=== PATIENT | male | born 1960 | race Caucasian/White ===

== ENCOUNTER 2018-09-22 05:28 | Inpatient (IN) | payer OTHER, BC ==
[2018-09-22] MEDS ORDERED: CEFAZOLIN 2 GM/50 ML (PMX) 50 ML IVPB (06:00)
[2018-09-22] MEDS: LACTATED RINGER'S 1,000 ML IV (06:38)
[2018-09-22] MEDS ORDERED: CEPASTAT LOZENGE MT (07:00)
[2018-09-22] MEDS ORDERED: NALOXONE (0.4 MG/ML) INJ IV (07:00)
[2018-09-22] MEDS ORDERED: DIPHENHYDRAMINE 25 MG CAP PO (07:00)
[2018-09-22] MEDS ORDERED: ACETAMINOPHEN 325 MG TAB PO (07:00)
[2018-09-22] MEDS ORDERED: CEFAZOLIN 1 GM INJ (07:00)
[2018-09-22] MEDS ORDERED: DIPHENHYDRAMINE 50 MG INJ IV (07:00)
[2018-09-22] MEDS ORDERED: DESFLURANE 15 MIN (07:00)
[2018-09-22] MEDS ORDERED: ROCURONIUM 50 MG INJ (07:14)
[2018-09-22] MEDS ORDERED: PROPOFOL 20 ML (07:14)
[2018-09-22] MEDS ORDERED: PROPOFOL 100 ML ×2 (07:14→09:31)
[2018-09-22] MEDS ORDERED: HYDROmorphONE 2 MG/ML SYG ×3 (07:15→11:52)
[2018-09-22] MEDS ORDERED: DEXAMETHASONE 4 MG/ML 5 ML INJ (07:15)
[2018-09-22] MEDS ORDERED: FENTAnyl 50 MCG/ML VIAL (07:15)
[2018-09-22] MEDS ORDERED: ONDANSETRON 4 MG INJ (07:15)
[2018-09-22] MEDS ORDERED: MIDAZOLAM 1 MG/ML 2 ML INJ (07:16)
[2018-09-22] MEDS ORDERED: PHENYLephrine 20MG IN 250 ML 250 ML IV (07:30)
[2018-09-22] MEDS ORDERED: LIDOCAINE 2% 20 ML UROJET SYRINGE ×2 (08:08→11:54)
[2018-09-22] MEDS: HEPARIN 1000 UNITS/ML 10 ML INJ (08:50)
[2018-09-22] MEDS: CEFAZOLIN 1 GM INJ (08:50)
[2018-09-22] MEDS ORDERED: LABETALOL HCL 20MG INJ IV (09:30)
[2018-09-22] MEDS ORDERED: hydrALAzine 20 MG INJ IV (09:30)
[2018-09-22] MEDS ORDERED: HYDROmorphONE 1 MG/5 ML IV SYRINGE IV (09:30)
[2018-09-22] MEDS ORDERED: ALBUMIN HUMAN 5% 250 ML IV (09:30)
[2018-09-22] MEDS ORDERED: MIDAZOLAM 1 MG/ML 2 ML INJ IV (09:30)
[2018-09-22] MEDS ORDERED: EPHEDrine 25 MG/5 ML SYG IV (09:30)
[2018-09-22] MEDS: BUPIVACAINE 0.5%/EPI (SDV) 30 ML INJ (09:33)
[2018-09-22] MEDS: GELATIN SIZE 100 SPONGE (09:34)
[2018-09-22] MEDS: THROMBIN 5000 UNIT (RECOTHROM) VIAL (09:34)
[2018-09-22] MEDS: HEMOSTATIC MATRIX SYG ZFS ×2 (09:35→11:00)
[2018-09-22] MEDS ORDERED: SUGAMMADEX SODIUM 200 MG/2 ML VIAL IV (10:40)
[2018-09-22] MEDS: ONDANSETRON 4 MG INJ IV ×2 (12:32→21:25)
[2018-09-22] MEDS: HYDROmorphONE 0.2 MG/ML PCA IV (12:32)
[2018-09-22] MEDS: HYDROmorphONE 1 MG/5 ML IV SYRINGE IV (12:32)
[2018-09-22] MEDS: DOCUSATE SODIUM 100 MG CAP PO ×2 (13:38→21:25)
[2018-09-22] MEDS: CEFAZOLIN 1 GM/50 ML (PMX) 50 ML IVPB ×2 (13:38→17:48)
[2018-09-22] MEDS: D5W-0.45 NACL + KCL 20 MEQ 1,000 ML IV ×2 (14:43→16:31)
[2018-09-22] MEDS: SOD CHLORIDE 0.9% 1,000 ML IV (17:48)
[2018-09-22] MEDS: PANTOPRAZOLE (EC) 40 MG TAB PO (18:23)
[2018-09-23] MEDS: CEFAZOLIN 1 GM/50 ML (PMX) 50 ML IVPB (01:10)
[2018-09-23] MEDS: D5W-0.45 NACL + KCL 20 MEQ 1,000 ML IV ×3 (03:03→22:54)
[2018-09-23] MEDS: HYDROmorphONE 0.2 MG/ML PCA IV (04:38)
[2018-09-23 04:54] LABS: ADD MAN DIFF? NO
[2018-09-23 04:58] LABS: WHITE BLOOD COUNT 14.1 10^3/ul (4.8-10.8)
[2018-09-23 04:58] LABS: ABNORMAL IP MESSAGE 1; BASOPHILS % 0.1 % (0.0-2.0); HEMATOCRIT 38.5 % (42.0-52.0); HEMOGLOBIN 12.8 g/dl (14.0-18.0); LYMPHOCYTES % 7.1 % (15.0-51.0); MEAN CORPUSCULAR HEMOGLOBIN 30.5 pg (29.0-33.0); MEAN CORPUSCULAR HGB CONC 33.2 g/dl (32.0-37.0); MEAN CORPUSCULAR VOLUME 91.9 fl (82.0-101.0); MEAN PLATELET VOLUME 11.1 fl (7.4-10.4); MONOCYTE # 1.6 10^3/ul (0.3-0.9); MONOCYTES % 11.3 % (0.0-11.0); NEUTROPHIL # 11.5 10^3/ul (1.6-7.5); NEUTROPHILS % 81.1 % (39.0-77.0); PLATELET COUNT 167 10^3/UL (140-415); POSITIVE DIFF @See below; RED BLOOD COUNT 4.19 10^6/ul (4.70-6.10); RED CELL DISTRIBUTION WIDTH 12.1 % (11.5-14.5)
[2018-09-23] MEDS: PANTOPRAZOLE (EC) 40 MG TAB PO ×2 (05:20→21:03)
[2018-09-23 05:29] LABS: ANION GAP 8 (5-13); BLOOD UREA NITROGEN 14 mg/dl (7-20); CALCIUM 8.7 mg/dl (8.4-10.2); CARBON DIOXIDE 27 mmol/L (21-31); CHLORIDE 105 mmol/L (97-110); CREATININE 1.09 mg/dl (0.61-1.24); Estimated GFR > 60 mL/min (>60); GLUCOSE 141 mg/dl (70-220); POTASSIUM 4.3 mmol/L (3.5-5.1); SODIUM 140 mmol/L (135-144)
[2018-09-23] MEDS: DOCUSATE SODIUM 100 MG CAP PO ×2 (09:34→21:03)
[2018-09-23 13:45] LABS: FREE T4 (FREE THYROXINE) 0.98 ng/dl (0.64-1.79)
[2018-09-23] MEDS: CYCLOBENZAPRINE 10 MG TAB PO (16:08)
[2018-09-23] MEDS: AL HYDROX/MG HYDROX/SIMETH 30 ML CUP PO (16:09)
[2018-09-23] MEDS: METHYLNALTREXONE 12 MG/0.6 ML VIAL SC (21:03)
[2018-09-24] MEDS: CYCLOBENZAPRINE 10 MG TAB PO ×2 (01:55→22:42)
[2018-09-24] MEDS: HYDROmorphONE 0.2 MG/ML PCA IV (02:10)
[2018-09-24] MEDS ORDERED: HYDROmorphONE 0.2 MG/ML PCA IV (02:30)
[2018-09-24] MEDS: D5W-0.45 NACL + KCL 20 MEQ 1,000 ML IV (05:04)
[2018-09-24 05:06] LABS: ADD MAN DIFF? NO
[2018-09-24 05:14] LABS: BASOPHILS % 0.2 % (0.0-2.0); EOSINOPHILS % 0.4 % (0.0-7.0); HEMATOCRIT 34.3 % (42.0-52.0); HEMOGLOBIN 11.3 g/dl (14.0-18.0); LYMPHOCYTES # 2.1 10^3/ul (0.8-2.9); LYMPHOCYTES % 18.7 % (15.0-51.0); MEAN CORPUSCULAR HEMOGLOBIN 30.5 pg (29.0-33.0); MEAN CORPUSCULAR HGB CONC 32.9 g/dl (32.0-37.0); MEAN CORPUSCULAR VOLUME 92.5 fl (82.0-101.0); MONOCYTE # 1.3 10^3/ul (0.3-0.9); MONOCYTES % 11.1 % (0.0-11.0); NEUTROPHIL # 7.9 10^3/ul (1.6-7.5); PLATELET COUNT 133 10^3/UL (140-415); RED BLOOD COUNT 3.71 10^6/ul (4.70-6.10); RED CELL DISTRIBUTION WIDTH 12.1 % (11.5-14.5)
[2018-09-24 05:14] LABS: WHITE BLOOD COUNT 11.4 10^3/ul (4.8-10.8)
[2018-09-24 05:38] LABS: ANION GAP 4 (5-13); BLOOD UREA NITROGEN 13 mg/dl (7-20); CALCIUM 8.4 mg/dl (8.4-10.2); CARBON DIOXIDE 29 mmol/L (21-31); CHLORIDE 103 mmol/L (97-110); CREATININE 0.94 mg/dl (0.61-1.24); Estimated GFR > 60 mL/min (>60); GLUCOSE 109 mg/dl (70-220); POTASSIUM 3.8 mmol/L (3.5-5.1); SODIUM 136 mmol/L (135-144)
[2018-09-24] MEDS: PANTOPRAZOLE (EC) 40 MG TAB PO ×2 (06:35→18:06)
[2018-09-24] MEDS: POTASSIUM CHLORIDE (SR) 20 MEQ TAB PO (09:05)
[2018-09-24] MEDS: DOCUSATE SODIUM 100 MG CAP PO ×2 (09:06→20:20)
[2018-09-24] MEDS: HYDROCODONE/APAP (10/325) TAB PO ×3 (09:06→20:20)
[2018-09-24] MEDS: FUROSEMIDE 20 MG TAB PO (09:06)
[2018-09-24] MEDS ORDERED: HYDROmorphONE 0.5 MG/0.5 ML SYG IV (13:00)
[2018-09-25] MEDS: HYDROCODONE/APAP (10/325) TAB PO ×4 (00:35→19:48)
[2018-09-25 05:28] LABS: ADD MAN DIFF? NO
[2018-09-25 05:32] LABS: BASOPHILS % 0.4 % (0.0-2.0); EOSINOPHILS # 0.2 10^3/ul (0.0-0.5); EOSINOPHILS % 1.6 % (0.0-7.0); HEMATOCRIT 34.8 % (42.0-52.0); HEMOGLOBIN 11.2 g/dl (14.0-18.0); LYMPHOCYTES # 2.1 10^3/ul (0.8-2.9); LYMPHOCYTES % 22.8 % (15.0-51.0); MEAN CORPUSCULAR HEMOGLOBIN 29.6 pg (29.0-33.0); MEAN CORPUSCULAR HGB CONC 32.2 g/dl (32.0-37.0); MEAN CORPUSCULAR VOLUME 91.8 fl (82.0-101.0); MEAN PLATELET VOLUME 11.2 fl (7.4-10.4); MONOCYTE # 0.9 10^3/ul (0.3-0.9); MONOCYTES % 9.7 % (0.0-11.0); NEUTROPHILS % 65.3 % (39.0-77.0); PLATELET COUNT 135 10^3/UL (140-415); RED BLOOD COUNT 3.79 10^6/ul (4.70-6.10)
[2018-09-25 05:32] LABS: WHITE BLOOD COUNT 9.2 10^3/ul (4.8-10.8)
[2018-09-25 06:08] LABS: ANION GAP 5 (5-13); BLOOD UREA NITROGEN 14 mg/dl (7-20); CALCIUM 8.3 mg/dl (8.4-10.2); CARBON DIOXIDE 32 mmol/L (21-31); CHLORIDE 99 mmol/L (97-110); CREATININE 0.94 mg/dl (0.61-1.24); Estimated GFR > 60 mL/min (>60); GLUCOSE 106 mg/dl (70-220); POTASSIUM 3.8 mmol/L (3.5-5.1); SODIUM 136 mmol/L (135-144)
[2018-09-25] MEDS: PANTOPRAZOLE (EC) 40 MG TAB PO ×2 (06:36→17:44)
[2018-09-25] MEDS: DOCUSATE SODIUM 100 MG CAP PO ×2 (09:33→21:00)
[2018-09-25] MEDS: AL HYDROX/MG HYDROX/SIMETH 30 ML CUP PO (09:33)
[2018-09-25] MEDS: METOPROLOL 25 MG TAB PO ×2 (09:33→20:47)
[2018-09-25] MEDS: CYCLOBENZAPRINE 10 MG TAB PO (09:38)
[2018-09-25 09:48] LABS: PROCALCITONIN 0.12 ng/mL (0.00-0.10)
[2018-09-25] MEDS: BISACODYL 10 MG SUPP PR (14:35)
[2018-09-25] MEDS: METHYLNALTREXONE 12 MG/0.6 ML VIAL SC (18:30)
== END 2018-09-25 21:10 | DRG 455 ==
LOC: REC 05:28 → MS1 13:59
PROVIDERS: Specialist
PROC: 0SG30A0 Fusion of Lumbosacral Joint with Interbody Fusion Device, Anterior Approach, Anterior Column, Open Approach (ICD-10-PCS; principal; 2018-09-22 07:00)
PROC: 0SG30K1 Fusion of Lumbosacral Joint with Nonautologous Tissue Substitute, Posterior Approach, Posterior Column, Open Approach (ICD-10-PCS; 2018-09-22 07:00)
PROC: 0ST40ZZ Resection of Lumbosacral Disc, Open Approach (ICD-10-PCS; 2018-09-22 07:00)
PROC: 0T7D8ZZ Dilation of Urethra, Via Natural or Artificial Opening Endoscopic (ICD-10-PCS; 2018-09-22 07:19)
PROC: 0T9B70Z Drainage of Bladder with Drainage Device, Via Natural or Artificial Opening (ICD-10-PCS; 2018-09-22 07:19)
DX: M51.17 Intervertebral disc disorders with radiculopathy, lumbosacral region (principal); K21.9 Gastro-esophageal reflux disease without esophagitis; N35.919 Unspecified urethral stricture, male, unspecified site; N32.0 Bladder-neck obstruction; I51.89 Other ill-defined heart diseases; R91.8 Other nonspecific abnormal finding of lung field; R94.6 Abnormal results of thyroid function studies; R00.0 Tachycardia, unspecified; E87.79 Other fluid overload
CPT/HCPCS: 71045; 72100; 72110; 80048; 83605; 83735; 84145; 84439; 84443; 85025; 87040-91; 87086; 88304; 93005; 93306; 93970; 97110; 97116; 97161; 97530

== ENCOUNTER 2018-09-25 21:24 | Inpatient (IN) | payer OTHER ==
[2018-09-25] MEDS ORDERED: CEPASTAT LOZENGE MT (22:00)
[2018-09-25] MEDS ORDERED: ACETAMINOPHEN 325 MG TAB PO (22:00)
[2018-09-25] MEDS ORDERED: ONDANSETRON 4 MG INJ IV (22:00)
[2018-09-25] MEDS ORDERED: BISACODYL 10 MG SUPP PR (22:00)
[2018-09-25] MEDS ORDERED: DIPHENHYDRAMINE 25 MG CAP PO (22:00)
[2018-09-25] MEDS ORDERED: NALOXONE (0.4 MG/ML) INJ IV (22:00)
[2018-09-25] MEDS: CYCLOBENZAPRINE 10 MG TAB PO (22:57)
[2018-09-26 01:44] LABS: ADD UMIC NO; UR ASCORBIC ACID NEGATIVE (NEGATIVE); UR BILIRUBIN (Dip) NEGATIVE (NEGATIVE); UR BLOOD (Dip) NEGATIVE (NEGATIVE); UR CLARITY CLEAR (CLEAR); UR COLOR STRAW (YELLOW); UR GLUCOSE (Dip) NEGATIVE (NEGATIVE); UR KETONES (Dip) NEGATIVE (NEGATIVE); UR LEUKOCYTE ESTERASE (Dip) NEGATIVE Leu/ul (NEGATIVE); UR NITRITE (Dip) NEGATIVE (NEGATIVE); UR SPECIFIC GRAVITY (Dip) 1.008 (1.003-1.030); UR TOTAL PROTEIN (Dip) NEGATIVE (NEGATIVE); UR UROBILINOGEN (Dip) NEGATIVE (NEGATIVE)
[2018-09-26] MEDS ORDERED: MAGNESIUM HYDROXIDE 30ML CUP PO (02:30)
[2018-09-26] MEDS ORDERED: LACTULOSE 30ML CUP PO (02:30)
[2018-09-26] MEDS: PANTOPRAZOLE (EC) 40 MG TAB PO ×2 (06:20→17:33)
[2018-09-26] MEDS ORDERED: PENDING SANTYL ORDER FOR WOUND CARE XX (06:30)
[2018-09-26] MEDS: DOCUSATE SODIUM 100 MG CAP PO ×2 (08:34→20:39)
[2018-09-26] MEDS: CYCLOBENZAPRINE 10 MG TAB PO ×2 (08:34→20:39)
[2018-09-26] MEDS: METOPROLOL 25 MG TAB PO (08:34)
[2018-09-26 08:35] LABS: ADD MAN DIFF? NO
[2018-09-26] MEDS: HYDROmorphONE 0.5 MG/0.5 ML SYG IV (08:35)
[2018-09-26 08:50] LABS: BASOPHILS % 0.5 % (0.0-2.0); EOSINOPHILS # 0.2 10^3/ul (0.0-0.5); EOSINOPHILS % 2.9 % (0.0-7.0); HEMATOCRIT 35.3 % (42.0-52.0); HEMOGLOBIN 11.5 g/dl (14.0-18.0); LYMPHOCYTES # 1.7 10^3/ul (0.8-2.9); LYMPHOCYTES % 21.7 % (15.0-51.0); MEAN CORPUSCULAR HEMOGLOBIN 29.8 pg (29.0-33.0); MEAN CORPUSCULAR HGB CONC 32.6 g/dl (32.0-37.0); MEAN CORPUSCULAR VOLUME 91.5 fl (82.0-101.0); MEAN PLATELET VOLUME 11.6 fl (7.4-10.4); MONOCYTE # 0.8 10^3/ul (0.3-0.9); MONOCYTES % 10.1 % (0.0-11.0); NEUTROPHILS % 64.4 % (39.0-77.0); PLATELET COUNT 165 10^3/UL (140-415); RED BLOOD COUNT 3.86 10^6/ul (4.70-6.10)
[2018-09-26 08:50] LABS: WHITE BLOOD COUNT 7.8 10^3/ul (4.8-10.8)
[2018-09-26 09:04] LABS: ALANINE AMINOTRANSFERASE 20 IU/L (13-69); ALBUMIN 3.5 g/dl (3.3-4.9); ALBUMIN/GLOBULIN RATIO 1.09; ALKALINE PHOSPHATASE 69 IU/L (42-121); ANION GAP 8 (5-13); ASPARTATE AMINO TRANSFERASE 37 IU/L (15-46); BILIRUBIN,INDIRECT 0.5 mg/dl (0-1.1); BILIRUBIN,TOTAL 0.5 mg/dl (0.2-1.3); BLOOD UREA NITROGEN 15 mg/dl (7-20); CALCIUM 8.8 mg/dl (8.4-10.2); CARBON DIOXIDE 32 mmol/L (21-31); CHLORIDE 99 mmol/L (97-110); CREATININE 0.99 mg/dl (0.61-1.24); Estimated GFR > 60 mL/min (>60); GLUCOSE 101 mg/dl (70-220); POTASSIUM 3.8 mmol/L (3.5-5.1); SODIUM 139 mmol/L (135-144); TOTAL PROTEIN 6.7 g/dl (6.1-8.1)
[2018-09-26] MEDS: HYDROCODONE/APAP (10/325) TAB PO ×2 (11:33→16:55)
[2018-09-26 12:24] LABS: HEPATITIS B SURFACE ANTIGEN NEGATIVE (NEGATIVE)
[2018-09-26 12:42] LABS: HEPATITIS C VIRAL ANTIBODY NEGATIVE (NEGATIVE)
[2018-09-26 18:53] LABS: RAPID PLASMA REAGIN NONREACTIVE (NR)
[2018-09-26] MEDS: ALFUZOSIN (SR) 10 MG TAB PO (20:39)
[2018-09-26] MEDS: SENNA TAB PO (20:39)
[2018-09-26] MEDS: METOPROLOL 50 MG TAB PO (20:40)
[2018-09-26] MEDS: AL HYDROX/MG HYDROX/SIMETH 30 ML CUP PO (23:35)
[2018-09-27] MEDS: CYCLOBENZAPRINE 10 MG TAB PO ×4 (02:36→23:20)
[2018-09-27] MEDS: PANTOPRAZOLE (EC) 40 MG TAB PO ×2 (06:33→17:41)
[2018-09-27] MEDS: METOPROLOL 50 MG TAB PO (09:58)
[2018-09-27] MEDS: DOCUSATE SODIUM 100 MG CAP PO ×2 (09:58→21:04)
[2018-09-27] MEDS: HYDROCODONE/APAP (10/325) TAB PO ×3 (09:59→23:20)
[2018-09-27] MEDS: METOPROLOL (XL) 100 MG TAB PO (21:00)
[2018-09-27] MEDS: SENNA TAB PO (21:04)
[2018-09-27] MEDS: ALFUZOSIN (SR) 10 MG TAB PO (21:09)
[2018-09-27] MEDS: METHYLNALTREXONE 12 MG/0.6 ML VIAL SC (21:10)
[2018-09-28] MEDS: PANTOPRAZOLE (EC) 40 MG TAB PO ×2 (06:29→17:36)
[2018-09-28] MEDS: DOCUSATE SODIUM 100 MG CAP PO ×2 (09:10→20:47)
[2018-09-28] MEDS: FINASTERIDE 5 MG TAB PO (09:11)
[2018-09-28] MEDS: METOPROLOL (XL) 100 MG TAB PO ×2 (09:13→20:53)
[2018-09-28] MEDS: HYDROCODONE/APAP (10/325) TAB PO ×2 (09:14→18:19)
[2018-09-28] MEDS: CYCLOBENZAPRINE 10 MG TAB PO (09:17)
[2018-09-28 11:11] LABS: ADD MAN DIFF? NO
[2018-09-28 11:15] LABS: BASOPHILS % 0.3 % (0.0-2.0); EOSINOPHILS # 0.2 10^3/ul (0.0-0.5); EOSINOPHILS % 3.3 % (0.0-7.0); HEMATOCRIT 35.5 % (42.0-52.0); HEMOGLOBIN 11.6 g/dl (14.0-18.0); LYMPHOCYTES # 1.6 10^3/ul (0.8-2.9); LYMPHOCYTES % 25.8 % (15.0-51.0); MEAN CORPUSCULAR HEMOGLOBIN 30.1 pg (29.0-33.0); MEAN CORPUSCULAR HGB CONC 32.7 g/dl (32.0-37.0); MEAN CORPUSCULAR VOLUME 92.2 fl (82.0-101.0); MEAN PLATELET VOLUME 10.8 fl (7.4-10.4); MONOCYTE # 0.7 10^3/ul (0.3-0.9); MONOCYTES % 10.9 % (0.0-11.0); NEUTROPHIL # 3.6 10^3/ul (1.6-7.5); NEUTROPHILS % 59.4 % (39.0-77.0); PLATELET COUNT 193 10^3/UL (140-415); RED BLOOD COUNT 3.85 10^6/ul (4.70-6.10); RED CELL DISTRIBUTION WIDTH 11.8 % (11.5-14.5)
[2018-09-28 11:15] LABS: WHITE BLOOD COUNT 6.1 10^3/ul (4.8-10.8)
[2018-09-28 11:39] LABS: ANION GAP 4 (5-13); BLOOD UREA NITROGEN 15 mg/dl (7-20); CALCIUM 8.7 mg/dl (8.4-10.2); CARBON DIOXIDE 31 mmol/L (21-31); CHLORIDE 102 mmol/L (97-110); CREATININE 0.96 mg/dl (0.61-1.24); Estimated GFR > 60 mL/min (>60); GLUCOSE 99 mg/dl (70-220); POTASSIUM 3.9 mmol/L (3.5-5.1); SODIUM 137 mmol/L (135-144)
[2018-09-28] MEDS: ALFUZOSIN (SR) 10 MG TAB PO (20:47)
[2018-09-28] MEDS: SENNA TAB PO (20:47)
[2018-09-28] MEDS: CIPROFLOXACIN 500 MG TAB PO (20:47)
[2018-09-29] MEDS: CIPROFLOXACIN 500 MG TAB PO ×2 (06:35→17:39)
[2018-09-29] MEDS: PANTOPRAZOLE (EC) 40 MG TAB PO ×2 (06:35→17:39)
[2018-09-29] MEDS: SIMETH/SOD BICARB/CIT AC PKT (E-Z- GAS II) PO (10:16)
[2018-09-29] MEDS: BARIUM SULFATE 135 ML (E-Z HD) PO (10:16)
[2018-09-29] MEDS: DOCUSATE SODIUM 100 MG CAP PO ×2 (10:46→21:00)
[2018-09-29] MEDS: METOPROLOL (XL) 100 MG TAB PO ×2 (10:46→21:00)
[2018-09-29] MEDS: FINASTERIDE 5 MG TAB PO (10:55)
[2018-09-29] MEDS: HYDROCODONE/APAP (10/325) TAB PO ×3 (10:56→21:57)
[2018-09-29] MEDS: ALFUZOSIN (SR) 10 MG TAB PO (21:00)
[2018-09-29] MEDS: METHYLNALTREXONE 12 MG/0.6 ML VIAL SC (21:06)
[2018-09-29] MEDS: SENNA TAB PO (21:07)
[2018-09-29] MEDS: CYCLOBENZAPRINE 10 MG TAB PO (21:09)
[2018-09-30] MEDS: CIPROFLOXACIN 500 MG TAB PO ×2 (07:04→17:11)
[2018-09-30] MEDS: PANTOPRAZOLE (EC) 40 MG TAB PO ×2 (07:04→17:11)
[2018-09-30] MEDS: HYDROCODONE/APAP (10/325) TAB PO ×3 (09:09→21:35)
[2018-09-30] MEDS: DOCUSATE SODIUM 100 MG CAP PO ×2 (09:09→21:34)
[2018-09-30] MEDS: METOPROLOL (XL) 100 MG TAB PO ×2 (09:10→21:34)
[2018-09-30] MEDS: FINASTERIDE 5 MG TAB PO (09:10)
[2018-09-30] MEDS: CYCLOBENZAPRINE 10 MG TAB PO ×3 (10:52→21:35)
[2018-09-30] MEDS: SENNA TAB PO (21:34)
[2018-09-30] MEDS: ALFUZOSIN (SR) 10 MG TAB PO (21:35)
[2018-10-01] MEDS: PANTOPRAZOLE (EC) 40 MG TAB PO ×2 (06:31→17:24)
[2018-10-01] MEDS: CIPROFLOXACIN 500 MG TAB PO ×2 (06:31→17:24)
[2018-10-01] MEDS: DOCUSATE SODIUM 100 MG CAP PO ×2 (08:21→20:13)
[2018-10-01] MEDS: METOPROLOL (XL) 100 MG TAB PO ×2 (08:22→20:13)
[2018-10-01] MEDS: FINASTERIDE 5 MG TAB PO (08:22)
[2018-10-01] MEDS: HYDROCODONE/APAP (10/325) TAB PO ×3 (08:23→22:40)
[2018-10-01] MEDS: CYCLOBENZAPRINE 10 MG TAB PO ×2 (11:19→22:40)
[2018-10-01] MEDS: METHYLNALTREXONE 12 MG/0.6 ML VIAL SC (20:13)
[2018-10-01] MEDS: SENNA TAB PO (20:13)
[2018-10-01] MEDS: ALFUZOSIN (SR) 10 MG TAB PO (20:13)
[2018-10-02] MEDS: PANTOPRAZOLE (EC) 40 MG TAB PO ×2 (06:21→17:09)
[2018-10-02] MEDS: CIPROFLOXACIN 500 MG TAB PO ×2 (06:21→17:09)
[2018-10-02] MEDS: FINASTERIDE 5 MG TAB PO (08:51)
[2018-10-02] MEDS: DOCUSATE SODIUM 100 MG CAP PO ×2 (08:52→20:52)
[2018-10-02] MEDS: METOPROLOL (XL) 100 MG TAB PO ×2 (09:00→20:52)
[2018-10-02] MEDS: HYDROCODONE/APAP (10/325) TAB PO ×2 (12:20→17:09)
[2018-10-02] MEDS: ALFUZOSIN (SR) 10 MG TAB PO (20:52)
[2018-10-02] MEDS: SENNA TAB PO (20:52)
[2018-10-03] MEDS: PANTOPRAZOLE (EC) 40 MG TAB PO ×2 (06:12→18:01)
[2018-10-03] MEDS: CYCLOBENZAPRINE 10 MG TAB PO (06:12)
[2018-10-03] MEDS: CIPROFLOXACIN 500 MG TAB PO ×2 (06:12→18:01)
[2018-10-03] MEDS: FINASTERIDE 5 MG TAB PO (09:22)
[2018-10-03] MEDS: DOCUSATE SODIUM 100 MG CAP PO ×2 (09:22→21:19)
[2018-10-03] MEDS: METOPROLOL (XL) 100 MG TAB PO ×2 (09:24→21:19)
[2018-10-03] MEDS: HYDROCODONE/APAP (10/325) TAB PO ×2 (09:29→18:02)
[2018-10-03] MEDS: ALFUZOSIN (SR) 10 MG TAB PO (21:19)
[2018-10-03] MEDS: METHYLNALTREXONE 12 MG/0.6 ML VIAL SC (21:19)
[2018-10-03] MEDS: SENNA TAB PO (21:19)
[2018-10-04] MEDS: CIPROFLOXACIN 500 MG TAB PO ×2 (06:46→17:15)
[2018-10-04] MEDS: CYCLOBENZAPRINE 10 MG TAB PO ×2 (06:46→21:55)
[2018-10-04] MEDS: PANTOPRAZOLE (EC) 40 MG TAB PO ×2 (06:46→17:15)
[2018-10-04] MEDS: METOPROLOL (XL) 100 MG TAB PO ×2 (08:13→21:48)
[2018-10-04] MEDS: DOCUSATE SODIUM 100 MG CAP PO ×2 (08:13→21:47)
[2018-10-04] MEDS: FINASTERIDE 5 MG TAB PO (08:14)
[2018-10-04] MEDS: HYDROCODONE/APAP (10/325) TAB PO ×3 (08:14→21:55)
[2018-10-04] MEDS: SENNA TAB PO (21:47)
[2018-10-04] MEDS: ALFUZOSIN (SR) 10 MG TAB PO (21:47)
[2018-10-05] MEDS: PANTOPRAZOLE (EC) 40 MG TAB PO ×2 (06:52→18:10)
[2018-10-05] MEDS: CIPROFLOXACIN 500 MG TAB PO (06:52)
[2018-10-05] MEDS: FINASTERIDE 5 MG TAB PO (09:45)
[2018-10-05] MEDS: DOCUSATE SODIUM 100 MG CAP PO ×2 (09:45→21:34)
[2018-10-05] MEDS: CYCLOBENZAPRINE 10 MG TAB PO ×2 (09:46→21:30)
[2018-10-05] MEDS: HYDROCODONE/APAP (10/325) TAB PO ×2 (09:46→21:29)
[2018-10-05] MEDS: METOPROLOL (XL) 100 MG TAB PO ×2 (09:46→21:34)
[2018-10-05] MEDS: SENNA TAB PO (21:00)
[2018-10-05] MEDS: METHYLNALTREXONE 12 MG/0.6 ML VIAL SC (21:28)
[2018-10-05] MEDS: ALFUZOSIN (SR) 10 MG TAB PO (21:29)
[2018-10-06] MEDS: PANTOPRAZOLE (EC) 40 MG TAB PO ×2 (06:28→18:13)
[2018-10-06] MEDS: HYDROCODONE/APAP (10/325) TAB PO ×3 (07:59→23:04)
[2018-10-06] MEDS: DOCUSATE SODIUM 100 MG CAP PO ×2 (09:00→21:00)
[2018-10-06] MEDS: FINASTERIDE 5 MG TAB PO (09:43)
[2018-10-06] MEDS: METOPROLOL (XL) 100 MG TAB PO ×2 (09:43→21:52)
[2018-10-06] MEDS: CYCLOBENZAPRINE 10 MG TAB PO ×2 (10:44→23:04)
[2018-10-06] MEDS: ALFUZOSIN (SR) 10 MG TAB PO (21:48)
[2018-10-06] MEDS: SENNA TAB PO (21:48)
[2018-10-07] MEDS: PANTOPRAZOLE (EC) 40 MG TAB PO (06:30)
[2018-10-07] MEDS: CYCLOBENZAPRINE 10 MG TAB PO (08:13)
[2018-10-07] MEDS: DOCUSATE SODIUM 100 MG CAP PO (08:13)
[2018-10-07] MEDS: FINASTERIDE 5 MG TAB PO (08:13)
[2018-10-07] MEDS: METOPROLOL (XL) 100 MG TAB PO (08:14)
== END 2018-10-07 08:45 | disposition home health service (06) | DRG 560 ==
LOC: VRC 21:24
DX: Z47.89 Encounter for other orthopedic aftercare (principal); J98.11 Atelectasis; G89.18 Other acute postprocedural pain; E86.0 Dehydration; K21.9 Gastro-esophageal reflux disease without esophagitis; Z96.0 Presence of urogenital implants; N35.919 Unspecified urethral stricture, male, unspecified site; R00.0 Tachycardia, unspecified; Z98.1 Arthrodesis status; F41.9 Anxiety disorder, unspecified; E87.70 Fluid overload, unspecified
CPT/HCPCS: 71046; 74230; 80048; 80053; 81003; 85025; 86592; 86803; 87081; 87086; 87340; 93005; 93971; 97110; 97112; 97116; 97163; 97530; 97535